=== PATIENT | female | born 1995 | race Caucasian/White ===

== ENCOUNTER → 2016-02-25 | Outpatient (CLI) | payer BC, OTHER ==
[~2016-02-25] MED LIST: AMOX875T PO; BCPILLS PO; NORE5TAB5 PO
[2016-02-29 00:51] LABS: CHLAMYDIA TRACH RNA*** NOT DETECTED (NOT DETECTED); GC (NEIS GONORRHOEAE)RNA** NOT DETECTED (NOT DETECTED)
== END | disposition home or self-care (01) ==
LOC: C.LABSPEC 15:19
PROVIDERS: ATTEND Obstetrics & Gynecology
DX: N93.8 Other specified abnormal uterine and vaginal bleeding (principal)

== ENCOUNTER → 2016-02-25 | Outpatient (CLI) | payer BC | END | disposition home or self-care (01) | LOC: C.PAPS 07:58 | PROVIDERS: ATTEND Obstetrics & Gynecology | DX: Z01.419 Encounter for gynecological examination (general) (routine) without abnormal findings (principal) ==

== ENCOUNTER → 2016-02-27 | Outpatient (CLI) | payer BC ==
[2016-02-27 18:59] LABS: HEMATOCRIT 33.9 % (37-47)
== END | disposition home or self-care (01) ==
LOC: C.LAB 17:35
PROVIDERS: ATTEND Obstetrics & Gynecology
DX: N92.5 Other specified irregular menstruation (principal)

== ENCOUNTER → 2016-04-14 | Outpatient (CLI) | payer BC | END | disposition home or self-care (01) | LOC: C.PAPS 15:13 | PROVIDERS: ATTEND Obstetrics & Gynecology | DX: R87.612 Low grade squamous intraepithelial lesion on cytologic smear of cervix (LGSIL) (principal); Z87.42 Personal history of other diseases of the female genital tract ==

== ENCOUNTER → 2016-05-04 | Outpatient (CLI) | payer BC ==
[2016-05-04 15:17] LABS: HEMATOCRIT 29.6 % (37-47)
== END | disposition home or self-care (01) ==
LOC: C.LAB 14:40
PROVIDERS: ATTEND Obstetrics & Gynecology
DX: N92.0 Excessive and frequent menstruation with regular cycle (principal)

== ENCOUNTER 2016-08-01 23:02 | Emergency (ER) | payer BC ==
[~2016-08-01] VITALS: Ht 157.5 cm; Wt 83.1 kg
[~2016-08-01 23:02] MED LIST changes: -AMOX875T PO; -NORE5TAB5 PO
[2016-08-01 23:11] VITALS: TEMP 36.8; Ht 157.5 cm; Wt 83.1 kg
[2016-08-01] MEDS ORDERED: ONDANSETRON INJ 2 MG/ML 2 ML VIAL IV STA (23:29)
[2016-08-01] MEDS ORDERED: SODIUM CHLORIDE 0.9% 500ML 500 ML IV STA (23:29)
[2016-08-01] MEDS ORDERED: SODIUM CHLORIDE 0.9% 1000ML 1,000 ML IV STA (23:29)
[2016-08-01] MEDS ORDERED: MoRPHine SULFATE 4 MG/ML 1 ML CARP\\VIAL IV STA (23:29)
--- NOTE | 2016-08-01 23:36 | EMERGENCY ROOM VISIT NOTE ---
History Report prepared by Terri: [place] Under the Supervision of: Dr. Chichi Christensen M.D. First contact with patient: 23:17 Chief Complaint: FLANK PAIN Stated Complaint: SEVERE RT SIDE/BACK PAIN FOR A FEW DAYS History of Present Illness The patient is a 20 year old female who presents to the Emergency Room with complaints of persistent right upper quadrant pain since yesterday afternoon. The pain moved more towards her back sometime last night and was also worsening. The pain does not radiate to the groin. The patient notes that it has been difficult to get comfortable in any position. The patient had Tylenol extra strength which offered some relief. She has never had surgery of the abdomen. Yesterday the patient ate chicken, peppers, and white rice, and notes that the pain was worse afterwards. She ate fish sticks, peanuts, and [employer] [place] today. The patient denies the possibility of secondary to control use. She is using control because of excessive menstrual bleeding. The patient denies burning with urination. The patient had all of her childhood immunizations. Source of History: patient Onset: yesterday afternoon Position: abdomen (RUQ) Timing: other (persistent) Modifying Factors (Worsening): eating Modifying Factors (Relieving): tylenol Associated Symptoms: No urinary symptoms Review of Systems See HPI for pertinent positives & negatives. A total of 10 systems reviewed and were otherwise negative. Past Medical & Surgical Medical Problems: (1) Asthma Family History Diabetes mellitus Hypertension Kidney stones Social History Smoking Status: Never Smoker Alcohol Use: none Marital Status: single Occupation Status: employed, student Current/Historical Medications Scheduled Amoxicillin & Pot Clavulanate (Augmentin 875-125 mg), 1 TAB PO BID Norethindrone (Aygestin), 5 MG PO DAILY Allergies Coded Allergies: No Known Allergies (Unverified , NONE, 08/01/16) Physical Exam Vital Signs Date Time Temp Pulse Resp B/P (MAP) Pulse Ox O2 Delivery O2 Flow Rate FiO2 08/02/16 01:16 77 18 128/82 100 Room Air 08/01/16 23:11 36.8 90 18 130/86 100 Room Air Physical Exam Vital signs reviewed. General: Well-appearing female, in no significant distress. HEENT: No scleral icterus, PERRLA, neck supple. Atraumatic. Cardiovascular: Regular rate and rhythm, no extra sounds. Pulmonary: Clear to auscultation bilaterally, normal work of breathing. Abdomen: Mild right upper quadrant tenderness, no rebound or guarding. Musculoskeletal: Atraumatic, no peripheral edema. No CVA tenderness. Neurologic: Patient awake alert and oriented x 3 Skin: Warm, dry, no rash Medical Decision & Procedures ER Provider Diagnostic Interpretation: X-ray results as stated below per interpretation by me. Chest/Abdomen X-ray: Nonobstructive bowel gas pattern, no free air , moderate fecal retention. No focal lung consolidation, normal mediastinum. Radiology results as stated below per my review and radiologist interpretation. US RUQ: No gallstones. No evidence of GB wall thickening or pericholeycstic fluid. No biliary dilation Liver, right kidney, visualized pancreas unremarkable. No free fluid. Radiologist: Roberto Nair MD from [facility]. Laboratory Results 08/02/16 00:37 Red Blood Count 4.40, Mean Corpuscular Volume 69.3, Mean Corpuscular Hemoglobin 20.7, Mean Corpuscular Hemoglobin Concent 29.8, Mean Platelet Volume 9.2, Neutrophils (%) (Auto) 57.5, Lymphocytes (%) (Auto) 29.7, Monocytes (%) (Auto) 9.9, Eosinophils (%) (Auto) 1.5, Basophils (%) (Auto) 0.5, Neutrophils # (Auto) 4.24, Lymphocytes # (Auto) 2.19, Monocytes # (Auto) 0.73, Eosinophils # (Auto) 0.11, Basophils # (Auto) 0.04 08/01/16 23:30 08/02/16 00:37 Test 08/01/16 23:30 08/02/16 00:37 Urine Color YELLOW Urine Appearance CLEAR (CLEAR) Urine pH 7.0 (4.5-7.5) Urine Specific [place] 1.009 (1.000-1.030) Urine Protein NEG (NEG) Urine Glucose (UA) NEG (NEG) Urine Ketones NEG (NEG) Urine Occult Blood NEG (NEG) Urine Nitrite NEG (NEG) Urine Bilirubin NEG (NEG) Urine Urobilinogen NEG (NEG) Urine Leukocyte Esterase NEG (NEG) Urine Test NEG (NEG) Anion Gap 7.0 mmol/L (3-11) Est Creatinine Clear Calc Drug Dose 64.1 ml/min Estimated GFR () 62.5 Estimated GFR (Non- 54.0 BUN/Creatinine Ratio 12.4 (10-20) Calcium Level 9.0 mg/dl (8.5-10.1) Total Bilirubin 0.2 mg/dl (0.2-1) Alanine Aminotransferase (ALT/SGPT) 25 U/L (12-78) Alkaline Phosphatase 59 U/L (45-117) Total Protein 7.1 gm/dl (6.4-8.2) Albumin 3.3 gm/dl (3.4-5.0) Lipase 251 U/L (73-393) White Blood Count 7.38 K/uL (4.8-10.8) Red Blood Count 4.40 M/uL (4.2-5.4) Hemoglobin 9.1 g/dL (12.0-16.0) Hematocrit 30.5 % (37-47) Mean Corpuscular Volume 69.3 fL (80-100) Mean Corpuscular Hemoglobin 20.7 pg (25-34) Mean Corpuscular Hemoglobin Concent 29.8 g/dl (32-36) Platelet Count 237 K/uL (130-400) Mean Platelet Volume 9.2 fL (7.4-10.4) Neutrophils (%) (Auto) 57.5 % Lymphocytes (%) (Auto) 29.7 % Monocytes (%) (Auto) 9.9 % Eosinophils (%) (Auto) 1.5 % Basophils (%) (Auto) 0.5 % Neutrophils # (Auto) 4.24 K/uL (1.4-6.5) Lymphocytes # (Auto) 2.19 K/uL (1.2-3.4) Monocytes # (Auto) 0.73 K/uL (0.11-0.59) Eosinophils # (Auto) 0.11 K/uL (0-0.5) Basophils # (Auto) 0.04 K/uL (0-0.2) RDW Standard Deviation 40.6 fL (36.4-46.3) RDW Coefficient of Variation 16.2 % (11.5-14.5) Immature Granulocyte % (Auto) 0.9 % Immature Granulocyte # (Auto) 0.07 K/uL (0.00-0.02) Microcytosis PRESENT Ovalocytes 1+ Direct Bilirubin < 0.1 mg/dl (0-0.2) Aspartate Amino Transf (AST/SGOT) 11 U/L (15-37) Laboratory results per my review. Medications Administered Medications (Trade) Dose Ordered Sig/Katie Route Start Time Stop Time Status Last Admin Dose Admin Sodium Chloride 500 ml @ 999 mls/hr Q31M STAT IV 08/01/16 23:29 08/01/16 23:59 DC 08/01/16 23:45 999 MLS/HR Sodium Chloride 1,000 ml @ 125 mls/hr Q8H STAT IV 08/01/16 23:29 08/02/16 01:40 DC 08/01/16 23:44 125 MLS/HR Morphine Sulfate (MoRPHine SULFATE INJ) 4 mg NOW STAT IV 08/01/16 23:29 08/01/16 23:32 DC 08/01/16 23:44 4 MG Ondansetron HCl (Zofran Inj) 4 mg NOW STAT IV 08/01/16 23:29 08/01/16 23:32 DC 08/01/16 23:44 4 MG Bisacodyl (Dulcolax Supp) 10 mg NOW STAT ID 08/02/16 00:23 08/02/16 00:24 DC 08/02/16 00:23 10 MG Magnesium Citrate (Citrate Of Magnesia Soln) 150 ml NOW ONCE PO 08/02/16 00:30 08/02/16 00:31 DC 08/02/16 00:30 150 ML ED Course 2328: Past medical records reviewed. The patient was evaluated in room C12b. A complete history and physical examination was performed. 2329: Zofran 4 mg IV, Morphine Sulfate 4 mg IV, NSS 1000 ml @ 125 mls/hr, NSS 500 ml @ 999 mls/hr. 0023: Bisacodyl 10 mg ID. 0027: Updated the patient and her mother. The mother notes that she was complaining of constipation earlier this week. 0030: Magnesium Citrate 150 ml PO 0100: Reassessed the patient. Discussed the workup. She understands and agrees with the discharge instructions. The patient is ready for discharge. Medical Decision Differential diagnosis: Etiologies such as appendicitis, diverticulitis, PUD, biliary pathology, UTI, pancreatitis, obstruction, mesenteric ischemia, aortic pathology, infections, inflammatory bowel disease, renal colic, as well as others were entertained. Blood Pressure Screening: Patient was found to have normal blood pressure on screening and does not require follow-up. Medication Reconciliation: I attest that I have personally reviewed the patient' s current medication list. This patient was evaluated and appeared to be in no significant distress. IV access was obtained and laboratory work was drawn. The patient was placed on the equipment monitor phototypesetting. Abdominal x-ray series was performed and reveals no free air or obstruction. She does have moderate colonic fecal retention to my interpretation. Ultrasound of right upper quadrant is read by radiology is relatively normal. Patient's laboratory work is unrevealing. She was given a Dulcolax suppository and magnesium citrate. She was instructed to use MiraLAX daily as needed for constipation. She will increase the water fiber in her diet. Patient was discharged in care of her mother and will return to the ER for worsening of symptoms or any medical concerns. Impression Primary Impression: Constipation Additional Impression: Elevated serum creatinine Scribe Attestation The scribe's documentation has been prepared under my direction and personally reviewed by me in its entirety. I confirm that the note above accurately reflects all work, treatment, procedures, and medical decision making performed by me. Departure Information Dispostion Home / Self-Care Referrals Jose Avilez M.D. (PCP) Forms HOME CARE DOCUMENTATION FORM, IMPORTANT VISIT INFORMATION Patient Instructions My [facility] Additional Instructions Diagnosis: Elevated creatinine, constipation. Take the remaining magnesium citrate in the morning if you have not had a BM. Continue miralax 1 capful daily as needed for a BM. Drink plenty of clear fluids. Increase the water and fiber in your diet. Follow up with your doctor in 2-3 days for reevaluation of your abdominal pain and kidney function. Return to emergency for worsening of symptoms or any medical concerns. Problem Qualifiers Primary Impression: Constipation Constipation type: unspecified constipation type Qualified Codes: K59.00 - Constipation, unspecified
[2016-08-01 23:46] LABS: URINE APPEARANCE CLEAR (CLEAR); URINE BILIRUBIN NEG (NEG); URINE COLOR YELLOW; URINE NITRITE NEG (NEG); URINE SPECIFIC GRAVITY 1.009 (1.000-1.030); UROBILINOGEN NEG (NEG); ZZUR CULT IF INDIC CLEAN CATCH NO
[2016-08-01 23:52] LABS: MANUAL MICROSCOPIC REQUIRED? NO; REVIEW REQ? NO
[2016-08-02 00:14] LABS: ALKALINE PHOSPHATASE 59 U/L (45-117); ALT/SGPT 25 U/L (12-78); BLOOD UREA NITROGEN 17 mg/dl (7-18); BUN/CREATININE RATIO 12.4 (10-20); CARBON DIOXIDE 26 mmol/L (21-32); CHLORIDE 105 mmol/L (98-107); GLUCOSE 88 mg/dl (70-99); SODIUM 138 mmol/L (136-145)
[2016-08-02] MEDS ORDERED: NORE5TAB5 PO (00:20)
[2016-08-02] MEDS ORDERED: BISACODYL 10 MG SUPP PR STA (00:23)
[2016-08-02] MEDS ORDERED: AMOX875T PO (00:28)
[2016-08-02] MEDS ORDERED: MAGNESIUM CITRATE 296 ML/BTL PO ONE (00:30)
[2016-08-02 00:45] LABS: BASO % 0.5 %; BASO ABS # 0.04 K/uL (0-0.2); EOS % 1.5 %; HEMATOCRIT 30.5 % (37-47); IG% 0.9 %; LYMPH % 29.7 %; LYMPH ABS # 2.19 K/uL (1.2-3.4); MEAN CELL VOLUME 69.3 fL (80-100); MEAN CORPUSCULAR HEMOGLOBIN 20.7 pg (25-34); MEAN CORPUSCULAR HGB CONC 29.8 g/dl (32-36); MEAN PLATELET VOLUME 9.2 fL (7.4-10.4); MONO % 9.9 %; NEUT % 57.5 %; PLATELET COUNT 237 K/uL (130-400); WHITE BLOOD COUNT 7.38 K/uL (4.8-10.8)
[2016-08-02 01:05] LABS: POTASSIUM 3.7 mmol/L (3.5-5.1)
[2016-08-02 01:10] LABS: AST/SGOT 11 U/L (15-37)
[2016-08-02 01:11] LABS: COMPLETE YES; MICROCYTOSIS PRESENT; OVALOCYTES 1+
[2016-08-02 01:16] VITALS: BP 128/82; PULSE 77; O2SAT 100
--- NOTE | 2016-08-02 05:50 | DIAGNOSTIC IMAGING REPORT ---
[facility] ultrasound GALLBLADDER-ABD LIMITED CLINICAL HISTORY: RUQ pain pain. Nausea. TECHNIQUE: Ultrasound COMPARISON STUDY: 06/06/2014 FINDINGS: Normal study IMPRESSION: Normal study. Normal gallbladder. Electronically signed by: Chung Irvin M.D. 08/02/2016 5:48 AM Dictated Date/Time: 08/02/2016 5:48 AM
--- NOTE | 2016-08-02 05:51 | DIAGNOSTIC IMAGING REPORT ---
ABDOMEN 2VIEW W/PA CHEST RTN CLINICAL HISTORY: RUQ pain pain. Nausea. COMPARISON STUDY: No previous studies for comparison. FINDINGS: The soft tissues, psoas shadows, renal outlines and intestinal gas pattern appear normal. There is no evidence for bowel obstruction. There is no evidence for free intraperitoneal air. No abnormal abdominal calcifications are seen. A frontal view of the chest was performed and is unremarkable. IMPRESSION: Normal study. Electronically signed by: Chung Irvin M.D. 08/02/2016 5:49 AM Dictated Date/Time: 08/02/2016 5:49 AM
== END 2016-08-02 01:21 | disposition home or self-care (01) ==
LOC: C.EDB 23:03 → C.EDC 08-02 01:21
DX: K59.00 Constipation, unspecified (principal); R94.4 Abnormal results of kidney function studies; J45.909 Unspecified asthma, uncomplicated; Z83.3 Family history of diabetes mellitus; Z82.49 Family history of ischemic heart disease and other diseases of the circulatory system; Z84.1 Family history of disorders of kidney and ureter

== ENCOUNTER → 2016-10-01 | Outpatient (CLI) | payer BC ==
[~2016-10-01] MED LIST changes: +AMOX875T PO; -BCPILLS PO; +NORE5TAB5 PO
== END | disposition home or self-care (01) ==
LOC: C.PAPS 14:51
PROVIDERS: ATTEND Obstetrics & Gynecology
DX: R87.612 Low grade squamous intraepithelial lesion on cytologic smear of cervix (LGSIL) (principal)

== ENCOUNTER → 2016-10-20 | Outpatient (CLI) | payer BC ==
[2016-10-20 14:51] LABS: HEMATOCRIT 34.4 % (37-47)
== END | disposition home or self-care (01) ==
LOC: C.LABBC 12:53
PROVIDERS: ATTEND Obstetrics & Gynecology
DX: N92.0 Excessive and frequent menstruation with regular cycle (principal); D64.9 Anemia, unspecified

== ENCOUNTER → 2017-04-27 | Outpatient (CLI) | payer BC ==
[2017-04-27 13:18] LABS: HEMOGLOBIN 13.7 g/dL (12.0-16.0)
== END | disposition home or self-care (01) ==
LOC: C.LAB 11:57
PROVIDERS: ATTEND Obstetrics & Gynecology
DX: N92.0 Excessive and frequent menstruation with regular cycle (principal); D64.9 Anemia, unspecified

== ENCOUNTER → 2017-09-15 | Outpatient (CLI) | payer BC ==
[~2017-09-15] MED LIST changes: -AMOX875T PO; +BCPILLS PO; -NORE5TAB5 PO
[2017-09-15 19:03] LABS: BASO % 0.4 %; BASO ABS # 0.03 K/uL (0-0.2); EOS % 1.1 %; EOS ABS # 0.08 K/uL (0-0.5); HEMATOCRIT 43.4 % (37-47); HEMOGLOBIN 14.5 g/dL (12.0-16.0); IG# 0.01 K/uL (0.00-0.02); LYMPH % 39.1 %; LYMPH ABS # 2.89 K/uL (1.2-3.4); MEAN CELL VOLUME 85.1 fL (80-100); MEAN CORPUSCULAR HEMOGLOBIN 28.4 pg (25-34); MEAN CORPUSCULAR HGB CONC 33.4 g/dl (32-36); MEAN PLATELET VOLUME 9.3 fL (7.4-10.4); MONO % 8.1 %; NEUT % 51.2 %; NEUT ABS # 3.79 K/uL (1.4-6.5); PLATELET COUNT 246 K/uL (130-400); RED CELL DISTRIBUTION WIDTH CV 13.1 % (11.5-14.5); RED CELL DISTRIBUTION WIDTH SD 40.8 fL (36.4-46.3)
[2017-09-15 19:12] LABS: PTT PATIENT 24.3 SECONDS (21.0-31.0)
[2017-09-15 19:20] LABS: BLOOD UREA NITROGEN 14 mg/dl (7-18); CALCIUM 8.8 mg/dl (8.5-10.1); CARBON DIOXIDE 23 mmol/L (21-32); CREATININE 0.78 mg/dl (0.60-1.20); GLUCOSE 73 mg/dl (70-99); POTASSIUM 3.5 mmol/L (3.5-5.1); SODIUM 139 mmol/L (136-145)
== END | disposition home or self-care (01) ==
LOC: C.LAB 17:44
PROVIDERS: ATTEND Plastic Surgery
DX: Z01.818 Encounter for other preprocedural examination (principal); N62 Hypertrophy of breast; A49.02 Methicillin resistant Staphylococcus aureus infection, unspecified site

== ENCOUNTER → 2017-09-22 | Outpatient (CLI) | payer BC | END | disposition home or self-care (01) | LOC: C.LAB 15:41 | PROVIDERS: ATTEND Physician Assistant | DX: Z01.818 Encounter for other preprocedural examination (principal) ==

== ENCOUNTER 2017-09-27 05:40 | Observation (INO) | payer BC ==
[2017-09-14 09:36] VITALS: BMI 41.0
[2017-09-16 09:22] VITALS: BMI 42.0
--- NOTE | 2017-09-16 09:37 | PAT Medication Instructions ---
Service Date Sep 16, 2017. Current Home Medication List Control Pills ( Control Pills), 1 TAB PO DAILY Medication Instructions For Your Scheduled Surgery -Continue to hold per surgeon's instructions: Control Pills ( Control Pills), 1 TAB PO DAILY If you have any questions please call us at [phone] or [phone] or [phone]
[2017-09-27] VITALS (8 sets, daily range): BP systolic 102–140; BP diastolic 66–87; PULSE 59–104; TEMP 36.4–37.3; O2SAT 96–99; Ht 157.5 cm; Wt 104.1 kg
[~2017-09-27] VITALS: Ht 157.5 cm; Wt 104.1 kg
[2017-09-27] MEDS ORDERED: LACTATED RINGER'S 1000ML 1,000 ML IV SCH (06:00)
[2017-09-27] MEDS ORDERED: CEFAZOLIN 2000MG IV PUSH 15 ML IV SCH (06:00)
[2017-09-27] MEDS ORDERED: EpINEphrine INJ 1MG/ML AMP 1 MG/ML AMP ONE (06:57)
[2017-09-27] MEDS ORDERED: LIDOCAINE/EPINEPHRINE 1% 20 ML VIAL ONE (06:57)
[2017-09-27] MEDS ORDERED: LIDOCAINE HCL 1% 20 ML VIAL ONE (06:58)
[2017-09-27] MEDS ORDERED: BUPIVACAINE 0.25% 30 ML VIAL ONE (06:59)
[2017-09-27] MEDS ORDERED: LIDOCAINE 2% JELLY 5 ML TUBE ONE (07:00)
--- NOTE | 2017-09-27 07:00 | History & Physical Bridge Note ---
H&P Re-Evaluation Bridge Note: I have examined the patient, reviewed the History & Physical and in the interval since the performance of the History & Physical I have noted the following changes of clinical significance: No changes noted
[2017-09-27] MEDS ORDERED: ACETAMINOPHEN 1000 MG/100 ML IV IV ONE (07:01)
[2017-09-27] MEDS ORDERED: MIDAZOLAM HCL 1 MG/ML 2ML VIAL ONE (07:10)
[2017-09-27] MEDS ORDERED: FENTANYL CITRATE INJ 50 MCG/1 ML 2 ML VIAL ONE (07:10)
[2017-09-27] MEDS ORDERED: HYDROmorphone INJ 2 MG/ML SYR/VIAL ONE (07:44)
[2017-09-27] MEDS ORDERED: KETAMINE HCL INJ 50 MG/ML 10 ML VIAL ONE (07:44)
[2017-09-27] MEDS ORDERED: ONDANSETRON INJ 2 MG/ML 2 ML VIAL ONE (07:59)
[2017-09-27] MEDS ORDERED: ROCURONIUM BROMIDE 10 MG/ML 5 ML VIAL ONE (07:59)
[2017-09-27] MEDS ORDERED: METOCLOPRAMIDE HCL INJ 5 MG/ML 2 ML VIAL ONE (07:59)
[2017-09-27] MEDS ORDERED: PROPOFOL IV EMULSION 10 MG/ML 20 ML VIAL ONE (07:59)
[2017-09-27] MEDS ORDERED: DiphenhydrAMINE HCL 50 MG/ML VIAL ONE (07:59)
[2017-09-27] MEDS ORDERED: LIDOCAINE HCL 2% 2 ML VIAL (20MG/ML) ONE (07:59)
--- NOTE | 2017-09-27 11:13 | [facility] Post Operative Brief Note ---
Immediate Operative Summary Operative Date Sep 27, 2017. Pre-Operative Diagnosis Macromastia Post-Operative Diagnosis Same as preop Procedure(s) Performed Bilateral Breast Reduction Surgeon Dr. Fong Motor Equipment Lieutenant Surgeon(s) Selena Oneill PA-C Estimated Blood Loss 75 cc Findings Consistent with Post-Op Diagnosis Specimens A: left breast tissue - 1154 grams B: right breast tissue - 1328 grams both sent to lab at 1037 Drains JPx2 Anesthesia Type General Complication(s) none Disposition Disposition: Recovery Room / PACU
[2017-09-27] MEDS ORDERED: DiphenhydrAMINE HCL 50 MG/ML VIAL IV PRN (11:45)
[2017-09-27] MEDS ORDERED: OXAZEPAM 10MG CAP PO PRN (11:45)
[2017-09-27] MEDS ORDERED: OXYCODONE/ACETAMINOPHEN 5-325 TAB PO PRN (11:45)
[2017-09-27] MEDS ORDERED: ONDANSETRON INJ 2 MG/ML 2 ML VIAL IV PRN ×2 (11:45→12:00)
[2017-09-27] MEDS ORDERED: ACETAMINOPHEN 325 MG TAB PO PRN (11:45)
[2017-09-27] MEDS ORDERED: MoRPHine SULFATE 2 MG/ML CARP IV PRN ×3 (11:45)
[2017-09-27] MEDS ORDERED: PROMETHAZINE HCL INJ 12.5 MG in SODIUM CHLORIDE 0.9% 50ML 50 ML IV PRN ×2 (11:45→12:00)
[2017-09-27] MEDS ORDERED: HYDROmorphone INJ 0.5 MG/0.5 ML SYR ONE (11:51)
[2017-09-27] MEDS ORDERED: HYDROmorphone INJ 1 MG/ML SYR IV PRN (12:00)
[2017-09-27] MEDS ORDERED: ATROPINE SULFATE 0.1 MG/ML 5ML SYR IV PRN (12:00)
[2017-09-27] MEDS ORDERED: NALOXONE HCL 0.4 MG/1 ML VIAL/CARP IV PRN (12:00)
[2017-09-27] MEDS ORDERED: EpHEDrine SULFATE INJ 50 MG/ML AMP IV PRN (12:00)
[2017-09-27] MEDS ORDERED: FLUMAZENIL 0.1 MG/1 ML 10 ML VIAL IV PRN (12:00)
--- NOTE | 2017-09-27 12:21 | Anesthesiology Progress Note ---
Anesthesia Post Op Note Date & Time Sep 27, 2017 at 12:21 Vital Signs Pain Intensity: 3 Vital Signs Past 12 Hours Date Time Temp Pulse Resp B/P (MAP) Pulse Ox O2 Delivery O2 Flow Rate FiO2 09/27/17 12:10 36.4 82 12 132/73 100 Nasal Cannula 2 09/27/17 12:00 79 13 132/74 100 Nasal Cannula 2 09/27/17 11:50 63 18 117/86 100 Nasal Cannula 2 09/27/17 11:40 70 20 129/68 100 Oxymask 10 09/27/17 11:30 84 19 141/80 100 Oxymask 10 09/27/17 11:23 36.4 82 17 148/85 100 Oxymask 10 09/27/17 06:36 37.3 104 18 140/83 (102) 97 Notes Mental Status: alert / awake / arousable, participated in evaluation Pt Amnestic to Procedure: Yes Nausea / Vomiting: adequately controlled Pain: adequately controlled Airway Patency, RR, SpO2: stable & adequate BP & HR: stable & adequate Hydration State: stable & adequate Anesthetic Complications: no major complications apparent
[2017-09-27] MEDS ORDERED: GLYCOPYRROLATE INJ 0.2 MG/ML VIAL ONE (12:58)
[2017-09-27] MEDS ORDERED: NEOSTIGMINE METHYLSULFATE 5 MG/5 ML SYR ONE (12:58)
[2017-09-27] MEDS ORDERED: MoRPHine SULFATE 4 MG/ML 1 ML CARP\\VIAL ONE (13:47)
--- NOTE | 2017-09-27 13:51 | Progress Note ---
Progress Note Date of Service Sep 27, 2017. Progress Note S/P bilateral breast reduction Patient resting comfortably. Pain controlled. VSS. Nipples pink and with sensation bilaterally Will see in AM to remove drains
[2017-09-27] MEDS ORDERED: IV FLUIDS COMPLETED PRN (15:15)
[2017-09-27] MEDS: CEFAZOLIN IV 2,000 MG in SYRINGE 0 ML IV SCH ×2 (16:08→23:15)
--- NOTE | 2017-09-27 16:22 | OPERATIVE REPORT ---
DATE OF OPERATION: 09/27/2017 PREOPERATIVE DIAGNOSIS: Bilateral symptomatic macromastia. POSTOPERATIVE DIAGNOSIS: Same. PROCEDURE: Bilateral reduction mammoplasty. SURGEON: Sara Fong MD. ANNEALING FURNACE OPERATOR: Lisa Oneill PA-C. ANESTHESIA: General. COMPLICATIONS: None. INDICATION FOR THE PROCEDURE: Patient is a 21-year-old female who presented to ut for evaluation for breast reduction. She noted rapid growth of her breasts during her teen years as well as approximately 80 pounds weight gain that resulted in potentially increase in her breast size. She has had difficulties finding bras and complains of back, neck, and shoulder pain and arrived down here for breast reduction surgery. She was counseled preoperatively about the effect of obesity and its effects on breast size but felt that she did not desire to lose any weight prior to the procedure. DESCRIPTION OF PROCEDURE: The risks, benefits, and alternatives of the procedure were explained to the patient who agreed and signed consent. She was identified and marked in the preoperative holding area. She was brought to the operating room where she was positioned supine and placed under general anesthesia without incident. Surgical site was prepped and draped sterilely. Timeout procedure was performed. We began with the left side. Markings were reassessed, and a 7 cm pedicle was marked. Lidocaine 1% with epinephrine was used to anesthetize the planned incisions. A 38 mm cookie cutter was used to circumscribe the nipple-areolar complex. A previously marked 7 cm pedicle was incised using a 15 blade scalpel and deepithelialized. I began with the medial dissection of the pedicle using electrocautery. Cautery was used to incise through dermis and breast parenchyma down to the chest wall taking care not to undermine the pedicle during dissection. A similar procedure was undertaken along the lateral aspect of the pedicle taking care not to undermine. Lastly, pedicle was dissected out superiorly using electrocautery. This was carried down to the chest wall as well. I then began excision of the medial breast tissue followed by lateral aspect of the breast tissue and surrounding keyhole incision. A 15 blade scalpel was used to deepen the inframammary fold incision, and electrocautery was used to deepen the incision through the dermis and breast parenchyma. Dissection was then carried superiorly to the level of the superior incision. The superior incision was then incised using 15 blade scalpel and again dissected using electrocautery. This was undertaken laterally and then around the keyhole portion of the incision. Care was taken to leave some fat on the lateral pectoralis fascia in order to protect the T4 intercostal nerve. Hemostasis was achieved with electrocautery. Specimen was removed in its entirety and passed off for weighing. Additional resection underneath the flap was undertaken. A total of 1154 g removed from the left breast. The wound was irrigated with saline, and hemostasis was achieved with electrocautery. 0.25% Marcaine plain was used to anesthetize the incisions as well as pectoralis fascia. A 15 Ukrainian Kevin drain was brought out through a separate stab incision. Nipple-areolar complex was brought into the keyhole using 2-0 Vicryl deep dermal suture. The wound was closed first in the lateral to mid breast direction using 2-0 Vicryl deep dermals and then medial to mid breast using 2-0 Vicryl deep dermals. Vertical limb was also approximated using 2-0 Vicryl deep dermals. Nipple-areolar complex was inset using 2-0 Vicryl deep dermals. Next, superficial dermal layer was closed using 2-0 PDO running Quill suture along the inframammary fold and 3-0 PDS interrupted dermal sutures for the vertical limb and nipple-areolar complex. Lastly, 3-0 Monocryl running subcuticular suture was placed. A similar procedure was undertaken on the right side with maximal excision weight of 1328 g. The nipple-areolar complexes were pink and viable throughout the entire procedure. Breasts were reasonably symmetric following the procedure. Following closure, Dermabond Prineo was applied along the inframammary folds and vertical limb incisions, and Dermabond was placed around the nipple-areolar complex. Dry dressings followed by a surgical bra placed. Patient was awakened and transferred to the recovery room in satisfactory condition. Lisa Oneill PA-C was present and scrubbed throughout the entire procedure and was instrumental in providing retraction during dissection of the pedicle and assisting in simultaneous wound closure. I attest to the content of the Intraoperative Record and any orders documented therein. Any exceptions are noted below. ANGELA
[2017-09-27] MEDS: OXYCODONE/ACETAMINOPHEN 5-325 TAB PO PRN ×2 (19:33→23:39)
[2017-09-27] MEDS: LACTATED RINGER'S 1000ML 1,000 ML IV SCH (21:23)
[2017-09-28 03:25] VITALS: BP 119/77; PULSE 58; TEMP 36.6; O2SAT 96
[2017-09-28] MEDS: OXYCODONE/ACETAMINOPHEN 5-325 TAB PO PRN ×3 (03:33→13:30)
[2017-09-28] MEDS: LACTATED RINGER'S 1000ML 1,000 ML IV SCH (06:04)
[2017-09-28 07:17] VITALS: BP 104/68; PULSE 74; TEMP 36.6; O2SAT 95
--- NOTE | 2017-09-28 08:18 | Surgery Progress Note ---
Surgery Progress Note Date of Service Sep 28, 2017. Subjective Post OP Day: 1 + feeling well, + ambulating, + pain controlled, No complaints Objective Vital Signs: Date Time Temp Pulse Resp B/P (MAP) Pulse Ox O2 Delivery O2 Flow Rate FiO2 09/28/17 07:17 36.6 74 18 104/68 (80) 95 Room Air 09/28/17 03:25 36.6 58 14 119/77 (91) 96 Room Air 09/28/17 00:00 Room Air 09/27/17 23:30 36.7 59 16 129/77 (94) 96 Room Air 09/27/17 19:56 36.9 63 18 111/68 (82) 96 Room Air 09/27/17 15:50 Room Air 09/27/17 15:40 37.0 71 17 102/66 (78) 97 Nasal Cannula 2.0 09/27/17 14:42 70 16 116/68 (84) 99 2.0 09/27/17 13:40 71 16 137/87 (104) 99 2.0 09/27/17 13:10 68 16 136/84 (101) 98 Nasal Cannula 2.0 09/27/17 12:40 36.4 68 16 121/74 (90) 98 Room Air 2.0 09/27/17 12:40 Nasal Cannula 2.0 09/27/17 12:40 Nasal Cannula 2.0 09/27/17 12:20 82 12 125/65 99 Nasal Cannula 2 09/27/17 12:10 36.4 82 12 132/73 100 Nasal Cannula 2 09/27/17 12:00 79 13 132/74 100 Nasal Cannula 2 09/27/17 11:50 63 18 117/86 100 Nasal Cannula 2 09/27/17 11:40 70 20 129/68 100 Oxymask 10 09/27/17 11:30 84 19 141/80 100 Oxymask 10 09/27/17 11:23 36.4 82 17 148/85 100 Oxymask 10 Physical Exam: Kevin drainage (scant bloody and serous) General Appearance: WD/WN, no apparent distress Incision(s): clean, dry, intact, no erythema, findings (nipples pink) Assessment & Plan s/p bilateral breast reduction. drains removed. d/c home today
--- NOTE | 2017-09-28 08:18 | Anesthesiology Progress Note ---
Anesthesia Post Op Note Date & Time Sep 28, 2017 at 08:17 Vital Signs Vital Signs Past 12 Hours Date Time Temp Pulse Resp B/P (MAP) Pulse Ox O2 Delivery O2 Flow Rate FiO2 09/28/17 07:17 36.6 74 18 104/68 (80) 95 Room Air 09/28/17 03:25 36.6 58 14 119/77 (91) 96 Room Air 09/28/17 00:00 Room Air 09/27/17 23:30 36.7 59 16 129/77 (94) 96 Room Air Notes Mental Status: alert / awake / arousable, participated in evaluation Pt Amnestic to Procedure: Yes Nausea / Vomiting: adequately controlled Pain: adequately controlled Airway Patency, RR, SpO2: stable & adequate BP & HR: stable & adequate Hydration State: stable & adequate Anesthetic Complications: no major complications apparent
--- NOTE | 2017-09-28 08:20 | Discharge Instructions ---
Discharge Instructions Date of Service Sep 28, 2017. Admission Reason for Admission: Symptomatic Macromastia Discharge Discharge Diagnosis / Problem: macromastia Discharge Goals Goal(s): Improve function Activity Recommendations Activity Limitations: per Instructions/Follow-up section ACTIVITY RECOMMENDATIONS: __Normal activities _x_No bending, lifting or straining __No driving __Driving allowed when you are off pain medications _x_Walking permitted __You should have help at home for ___ days DRESSINGS: __No dressings required _x_Keep dressings dry/in place until first office visit __Remove dressings ___ and leave dressings off __Apply ice ___ days __Remove dressings and reapply garment __Apply antibiotic ointment (Bacitracin, Neosporin, etc) to wounds 3-4 times/ day for 10 days BATHING: _x_Keep dressings dry _x_Sponge bathing permitted __Showering permitted _x_No swimming, hot tubs or soaking in a tub MEDICATIONS: Resume previous medications unless instructed otherwise by your surgeon. _x_Do not use aspirin, Motrin, Advil or Ibuprofen as these may promote bleeding. Please use Tylenol. _x_Prescription(s) provided: pain medication was provided at your last office visit OTHER INSTRUCTIONS: __Record drain output 2-3 times per day SPECIAL CARE INSTRUCTIONS: * It is normal to have a mild fever after surgery. If your temperature is higher than 101.5 degrees F, please call the office at [phone]. * Constipation is a typical side effect of pain medication. An over-the- counter stool softener will help relieve this. * Leaking around surgical drains may occur and should not cause concern. Sometimes these drains become clogged. If this happens, remove the bulb and milk the clot out of the tube, then replace the bulb. * Drainage from wounds after liposuction is normal and should be expected. Garments will become soiled. You should protect furniture and bedding. This drainage should mostly subside within 2-3 days. Leave garments in place unless instructed to remove them. * If you have unusual drainage from a wound or are concerned you have an infection or have any questions or concerns, please call the office at [phone]. FOLLOW UP VISIT: If not already scheduled, please call the office, , when you return home after surgery to schedule an appointment to be seen in _2__ days. . Current Hospital Diet Patient's current hospital diet: Regular Diet Discharge Diet Recommended Diet: Regular Diet Procedures Procedures Performed: Bilateral Breast Reduction Pending Studies Studies pending at discharge: yes List of pending studies: pathology Medical Emergencies . Who to Call and When: Medical Emergencies: If at any time you feel your situation is an emergency, please call 911 immediately. . Non-Emergent Contact Non-Emergency issues call your: Primary Care Provider, Surgeon . "Provider Documentation" section prepared by Lisa Oneill. Alexey LOZA Drug Monitoring Program Search Results: no issues identified
[2017-09-28] MEDS ORDERED: ENOXAPARIN 40 MG/0.4 ML SYR SQ SCH (09:00)
[2017-09-28] MEDS ORDERED: MULTIVITAMIN TAB PO SCH (09:00)
[2017-09-28 10:42] VITALS: BP 104/68; PULSE 74; TEMP 36.6; O2SAT 95
--- NOTE | 2017-09-30 09:15 | Discharge Summary ---
Discharge Summary Date of Service Sep 30, 2017. Admission Date/Reason Sep 27, 2017 at 11:41 Symptomatic Macromastia. Discharge Date/Disposition Sep 28, 2017 Home Diagnosis Principal Diagnosis: macromastia Procedure(s) Performed bilateral breast reduction Medication Reconciliation Discontinued Medications: Control Pills ( Control Pills) Tab 1 TAB PO DAILY, TAB STOPPED 09/02/17 -- PER DR VICK'S INSTRUCTIONS Admission Physical Exam As per Admitting History & Physical. Hospital Course Patient presented to [facility] with history of symptomatic macromastia. She was taken to the OR and underwent bilateral breast reduction. There were no intraoperative complications. She was taken to recovery and transferred to med/ surg for observation. On POD#1, she was tolerated a regular diet and had good pain control. Her drains had scant bloody/serous output and they were removed. On exam, her incisions were CDI. VSS. She was discharged home. Discharge Instructions Please refer to the electronic Patient Visit Report (Discharge Instructions) for additional information.
== END 2017-09-28 14:20 | disposition home or self-care (01) ==
LOC: C.ACU 05:40 → C.MSW 11:41 → ENRESERV 12:00
PROVIDERS: ADMIT Plastic Surgery; ATTEND Plastic Surgery
DX: N62 Hypertrophy of breast (principal); K21.9 Gastro-esophageal reflux disease without esophagitis; Z88.8 Allergy status to other drugs, medicaments and biological substances; E66.01 Morbid (severe) obesity due to excess calories; Z68.41 Body mass index [BMI] 40.0-44.9, adult

== ENCOUNTER 2019-10-05 19:06 | Inpatient (IN) ==
[2019-10-05] MEDS ORDERED: miSOPROStoL 50 MCG TAB PO ONE (19:40)
[2019-10-05] MEDS ORDERED: OXYTOCIN 30 UNITS/500 ML BAG IV PRN (19:40)
[2019-10-05 19:57] LABS: Hematocrit (blood only) 34.3 % (37-47); Hemoglobin 10.9 g/dL (12.0-16.0); Mean Corpuscular Hemoglobin 26.6 pg (25-34); Mean Corpuscular Volume 83.7 fL (80-100); Mean Platelet Volume 11.7 fL (7.4-10.4); Platelet Count 171 K/uL (130-400); RDW Coefficient of Variation 17.2 % (11.5-14.5); RDW Standard Deviation 51.1 fL (36.4-46.3); White Blood Count 8.35 K/uL (4.8-10.8)
[2019-10-05 20:26] LABS: Mean Corpuscular Hgb Conc 31.8 g/dL (32-36)
[2019-10-06] MEDS: miSOPROStoL 50 MCG TAB PO SCH ×3 (00:54→09:25)
[2019-10-06] MEDS ORDERED: BUTORPHANOL TARTRATE 1 MG/ML VIAL IV ONE (08:15)
[2019-10-06] MEDS ORDERED: BUPIVACAINE 0.25% 30 ML VIAL ONE (10:20)
[2019-10-06] MEDS ORDERED: ePHEDrine sulfate 50 MG/ML AMP ONE (10:20)
[2019-10-06] MEDS ORDERED: fentaNYL citrate 100 MCG/2 ML VIAL ONE (10:20)
[2019-10-06] MEDS ORDERED: fentaNYL 2MCG/ML ROPIV 1.25MG/ML 100 ML BAG EPI ONE (10:21)
[2019-10-06] MEDS: LACTATED RINGER'S 1,000 ML IV PRN ×3 (10:24→19:20)
--- NOTE | 2019-10-06 11:21 | Anesthesiology Consultation ---
Date of Service October 06, 2019 Assessment & Plan Chart Review Chart Review: Acceptable Risk for Labor Epidural Consults Requested none History Height/Weight Height: 5 ft 2 in Weight: 101.151 kg Allergies Allergy/AdvReac Type Severity Reaction Status Date / Time latex Allergy Hives Verified 01/30/18 19:38 Medications Home Medications Medication Instructions Recorded Confirmed Last Taken vit no.[id number] 1 tab PO DAILY 09/13/19 10/06/19 10/04/19 [ One Daily] Active Medications Generic Name Dose Route Start Last Admin Trade Name Freq PRN Reason Stop Dose Admin Lactated Ringer's 1,000 mls @ 125 mls/hr 10/05/19 19:40 10/06/19 10:24 Lr IV 10/07/19 19:39 999 mls/hr .Q8H PRN Administration L&D Protocol Protocol Misoprostol 50 mcg 10/06/19 00:50 10/06/19 09:25 Misoprostol 50 Mcg Tab PO 11/05/19 00:49 Not Given Q4 MEREDITH Past Family History Family History Grandfather (Maternal) Heart disease Grandfather (Paternal) Heart disease Grandmother (Maternal) Heart disease Father Colon cancer Other No significant family history Past Surgical History Surgical History Hx of breast reduction, elective 2018 [place] teeth extracted Social History Smoking Status: Never smoker Hx Alcohol Use: No Hx Substance Use: No Physical Exam Vital Signs Last Vital Signs Temp 36.9 C 10/06/19 07:06 Pulse 88 10/06/19 11:16 Resp 20 10/06/19 07:06 BP 99/58 L 10/06/19 11:16 Pulse Ox 99 10/06/19 11:14 Testing Laboratory Results 10/05/19 19:39
[2019-10-06] MEDS ORDERED: ePHEDrine sulfate 50 MG/ML AMP IV PRN (11:23)
[2019-10-06] MEDS ORDERED: NALOXONE HCL 0.4 MG/1 ML VIAL/CARP IV PRN (11:23)
[2019-10-06] MEDS ORDERED: NALOXONE HCL 1 MG in SODIUM CHLORIDE 0.9% 1000ML 1,000 ML IV PRN (11:23)
[2019-10-06] MEDS ORDERED: fentaNYL 2MCG/ML ROPIV 1.25MG/ML 100 ML BAG EPI PRN (11:23)
[2019-10-06] MEDS ORDERED: DiphenhydrAMINE HCL 50 MG/ML VIAL IV PRN (11:23)
[2019-10-06] MEDS ORDERED: Nursing to Pharmacy Communication SCH (12:30)
[2019-10-06] MEDS ORDERED: OXYTOCIN 30 UNITS/500 ML BAG IV PRN (17:05)
[2019-10-07] MEDS ORDERED: METHYLERGONOVINE MALEATE 0.2 MG/ML AMP ONE (00:35)
[2019-10-07] MEDS ORDERED: SUPERCREAM 0.870% 15 GM JAR EXT PRN (00:38)
[2019-10-07] MEDS ORDERED: ACETAMINOPHEN 325 MG TAB PO PRN (00:38)
[2019-10-07] MEDS ORDERED: HYDROCORTISONE ACETATE 25 MG SUPP PR PRN (00:38)
[2019-10-07] MEDS ORDERED: bisacodyL 10 MG SUPP PR PRN (00:38)
[2019-10-07] MEDS ORDERED: BENZOCAINE 20% AER SPR 82.5 GM CAN EXT PRN (00:38)
[2019-10-07] MEDS ORDERED: DIPHTHERIA/TETANUS/PERTUSSIS 0.5 ML SYR/VIAL IM ONE (00:38)
[2019-10-07] MEDS ORDERED: METHYLERGONOVINE MALEATE 0.2 MG/ML AMP IM ONE (00:38)
[2019-10-07] MEDS ORDERED: OXYTOCIN 30 UNITS/500 ML BAG IV PRN (00:38)
[2019-10-07] MEDS ORDERED: OXYCODONE/ACETAMINOPHEN 5mg/325mg TAB PO PRN (00:38)
--- NOTE | 2019-10-07 01:31 | Delivery Summary ---
DATE OF DELIVERY: 10/07/2019 DELIVERY NOTE This is a 1, para 1, blood type is A negative, group B strep negative, due date is 09/27/2019, was brought in for induction of labor at 40 weeks and 1 day. Started out, she had several doses of p.o. Cytotec through the night about 3 doses. She went from about 1 cm to the following morning about 2-3 cm. Jamie regularly with the Cytotec, she eventually got an epidural, got good pain relief. We then ruptured her membrane surgically. There was some meconium noted at this time. Then her contractions, although she was getting them frequently, she had no cervical change. She was started on IV Pitocin. With the IV Pitocin, we continued to up it. She went to full dilatation and delivered a live female via direct occiput anterior position over an intact perineum. Infant was suctioned through the mouth and the nose. Shoulders were delivered without difficulty. Cord was allowed to pulse for a minute, then it was cut by the patient's mother. Cord blood was taken. With IV Pitocin running, the placenta was removed intact. Inspection revealed a classical first-degree laceration. The vaginal mucosa was approximated out and to beyond the hymenal ring with a running 2-0 Vicryl. A deep suture was used to approximate the bulbocavernosus muscle. A separate deep suture was used to approximate the perineal body and a running subcuticular suture was used to approximate the perineal skin edges. Following this, sponges were removed. Clots were expressed from the uterus and then a vag exam including rectovaginal examination revealed no hematoma formation or sponges in the vagina. Estimated blood loss was 200 mL Apgars deferred to the nurses. I attest to the content of the Intraoperative Record and any orders documented therein. Any exceptions are noted below. MTDD
[2019-10-07] MEDS: IBUPROFEN 600 MG TAB PO PRN ×4 (02:19→20:03)
[2019-10-07] MEDS: DOCUSATE SODIUM 100 MG CAP PO SCH ×2 (07:58→20:03)
[2019-10-07] MEDS: PRENATAL VITAMIN 1 TAB PO SCH (07:58)
--- NOTE | 2019-10-07 08:22 | Anesthesia Procedure Note ---
Date of Service October 07, 2019 Anesthesia Post Epidural Note Vital Signs Vital Signs: Temp Pulse Resp BP Pulse Ox 36.6 C 62 20 112/76 100 10/07/19 07:45 10/07/19 07:45 10/07/19 07:45 10/07/19 07:45 10/07/19 00:35 Pain Intensity Left Lower Abdomen: Pain Intensity: 1 Notes Mental Status: alert / awake / arousable and participated in evaluation Nausea / Vomiting: adequately controlled Pain: adequately controlled Airway Patency, RR, SpO2: stable & adequate BP & HR: stable & adequate Hydration State: stable & adequate Neuraxial Anesthesia: was administered and sensory block is resolving Anesthetic Complications: no major complications apparent Epidural: Removed without complications and With tip intact
--- NOTE | 2019-10-07 12:51 | Obstetrical Progress Note ---
Date of Service October 07, 2019 Assessment & Plan Admission and Anticipated Discharge Date Admission Date: October 05, 2019 Physical Exam Physical Exam: abdomen soft and non tender no calf tenderness ambulating well vaginal bleeding scant hgb 10.9 Results & Data ([facility]) Vital Signs (Past 12 Hours) Vital Signs Temp Pulse Pulse Resp BP BP 10/07/19 11:50 36.7 C 70 16 123/75 10/07/19 11:49 36.6 C 122 H 20 127/87 10/07/19 07:45 36.6 C 62 20 112/76 10/07/19 03:25 37.2 C 82 18 135/81 10/07/19 02:54 122 H 127/87 10/07/19 02:40 88 18 120/69 10/07/19 02:39 88 120/69 10/07/19 02:24 78 119/75 10/07/19 02:10 76 18 122/77 10/07/19 02:09 76 122/77 10/07/19 01:54 62 127/81 10/07/19 01:40 56 L 18 128/91 10/07/19 01:39 56 L 128/91 10/07/19 01:25 67 18 130/69 10/07/19 01:24 67 130/69 10/07/19 01:10 75 20 118/60 10/07/19 01:09 75 118/60 10/07/19 00:55 77 20 127/67 10/07/19 00:54 77 127/67
[2019-10-07] MEDS: ACETAMINOPHEN W/CODEINE #3 1 TAB PO PRN (16:38)
[2019-10-08] MEDS: IBUPROFEN 600 MG TAB PO PRN ×4 (02:31→21:33)
[2019-10-08] MEDS: PRENATAL VITAMIN 1 TAB PO SCH (07:41)
[2019-10-08] MEDS: DOCUSATE SODIUM 100 MG CAP PO SCH ×2 (07:41→21:33)
--- NOTE | 2019-10-08 11:50 | Obstetrical Progress Note ---
Date of Service October 08, 2019 Assessment & Plan Admission and Anticipated Discharge Date Admission Date: October 05, 2019 Physical Exam Physical Exam: abdomen soft and non tender right sided calf tenderness ambulating well vaginal bleeding scant hgb 10.9 Results & Data ([facility]) Vital Signs (Past 12 Hours) Vital Signs Temp Pulse Resp BP Pulse Ox 10/07/ 07:30 36.7 C 78 20 108/67 99
--- NOTE | 2019-10-08 13:58 | Ultrasound Report ---
US venous doppler LE BI CLINICAL HISTORY: Leg pain COMPARISON STUDY: No previous studies for comparison. FINDINGS: Real-time and color flow Doppler imaging were performed. Flow was seen within the femoral, popliteal and calf veins with no intraluminal thrombus demonstrated. The saphenous vein is patent. IMPRESSION: No evidence of lower extremity DVT. ACT 112: Negative or not required by law. Electronically signed by: Lucien Landa M.D. 10/08/2019 1:57 PM
[2019-10-08] MEDS: ACETAMINOPHEN W/CODEINE #3 1 TAB PO PRN (14:04)
[2019-10-08] MEDS ORDERED: bisacodyL 5 MG TABEC PO SCH (20:00)
[2019-10-09] MEDS: IBUPROFEN 600 MG TAB PO PRN (02:04)
[2019-10-09] MEDS: PRENATAL VITAMIN 1 TAB PO SCH (08:16)
[2019-10-09] MEDS: DOCUSATE SODIUM 100 MG CAP PO SCH (08:16)
--- NOTE | 2019-10-09 09:24 | Obstetrical Progress Note ---
Date of Service October 09, 2019 Assessment & Plan Admission and Anticipated Discharge Date Admission Date: October 05, 2019 Physical Exam Physical Exam: abdomen soft and non tender no calf tenderness ambulating well vaginal bleeding scant hgb 9.6 Results & Data ([facility]) Vital Signs (Past 12 Hours) Vital Signs Temp Pulse Resp BP BP Pulse Ox 10/09/19 07:25 36.6 C 75 19 132/87 99 10/08/19 23:30 36.7 C 74 16 107/71 10/08/19 21:30 36.6 C 76 20 116/74 99
== END 2019-10-09 16:30 | disposition home or self-care (01) | DRG 807 ==
LOC: 4S1 19:06 → 4S2 10-07 03:34 → UNDODISIN 10-07 19:10

== ENCOUNTER 2022-04-03 09:46 | Inpatient (IN) ==
[2022-04-03] MEDS ORDERED: miSOPROStoL 50 MCG TAB PO ONE (14:10)
[2022-04-03] MEDS ORDERED: OXYTOCIN 30 UNITS/500 ML BAG IV PRN ×2 (14:10→19:25)
[2022-04-03] MEDS ORDERED: LIDOCAINE 1% LOCAL 20 ML VIAL INFIL PRN (14:10)
[2022-04-03] MEDS ORDERED: PENICILLIN G POTASSIUM 6 MU in DEXTROSE 5% 250 ML IV STA (14:19)
[2022-04-03] MEDS: LACTATED RINGER'S 1,000 ML IV PRN ×2 (14:39→21:24)
[2022-04-03 15:08] LABS: Hematocrit (blood only) 34.1 % (37.0-47.0); Hemoglobin 11.1 g/dl (12.0-16.0); Mean Corpuscular Hemoglobin 27.7 pg (25.0-34.0); Mean Corpuscular Hgb Conc 32.6 g/dL (32.0-36.0); Mean Platelet Volume 12.2 fL (9.4-12.4); Platelet Count 150 K/uL (130-400); RDW Coefficient of Variation 15.3 % (11.5-14.5); Red Blood Count 4.01 M/uL (4.20-5.40); White Blood Count 7.58 K/ul (4.8-10.8)
[2022-04-03] MEDS: PENICILLIN G POTASSIUM 3 MU in DEXTROSE 5% 100 ML IV PRN ×2 (18:50→22:43)
[2022-04-03] MEDS ORDERED: ePHEDrine sulfate 50 MG/ML AMP ONE (19:32)
[2022-04-03] MEDS ORDERED: SODIUM CHLORIDE 0.9% INJ 10 ML VIAL ONE (19:32)
[2022-04-03] MEDS ORDERED: fentaNYL citrate 100 MCG/2 ML VIAL ONE (19:32)
[2022-04-03] MEDS ORDERED: LIDOCAINE 2%/EPINEPHRINE 1:200,000 20 ML SDV ONE (19:33)
[2022-04-03] MEDS ORDERED: BUPIVACAINE 0.25% 30 ML VIAL ONE (19:33)
[2022-04-03] MEDS ORDERED: fentaNYL 2MCG/ML ROPIVACAINE 1.25MG/ML 100 ML BAG EPI ONE (19:33)
[2022-04-03] MEDS ORDERED: NALBUPHINE HCL INJ 10 MG/ML AMP IV PRN (19:40)
[2022-04-03] MEDS ORDERED: ePHEDrine sulfate 50 MG/ML AMP IV PRN (19:40)
[2022-04-03] MEDS ORDERED: NALOXONE HCL 0.4 MG/1 ML VIAL/CARP IV PRN (19:40)
[2022-04-03] MEDS ORDERED: diphenhydrAMINE 50 MG/ML VIAL IV PRN (19:40)
[2022-04-03] MEDS ORDERED: fentaNYL 2MCG/ML ROPIVACAINE 1.25MG/ML 100 ML BAG EPI PRN (19:40)
[2022-04-03] MEDS ORDERED: NALOXONE HCL 1 MG in SODIUM CHLORIDE 0.9% 1000ML 1,000 ML IV PRN (19:40)
[2022-04-03] MEDS ORDERED: ONDANSETRON INJ 2 MG/ML 2 ML VIAL IV PRN (19:40)
--- NOTE | 2022-04-03 19:41 | Anesthesiology Consultation ---
Date of Service April 03, 2022 Assessment & Plan (1) Encounter for pre-operative examination: Chart Review Chart Review: Patient NOT seen in Pre Admission Testing and Acceptable Risk for Labor Epidural Consults Requested none History Height/Weight Height: 5 ft 2 in Weight: 104.326 kg Allergies Allergy/AdvReac Type Severity Reaction Status Date / Time latex Allergy Hives Verified 03/30/22 10:28 Medications Home Medications Medication Instructions Recorded Confirmed Last Taken vits no.129-ferrous fum 1 tab PO DAILY 09/13/19 04/03/22 1 Day Ago 27 mg iron-folic acid 800 mcg ~04/02/22 tablet ( One Daily) Active Medications Generic Name Dose Route Start Last Admin Trade Name Freq PRN Reason Stop Dose Admin Lactated Ringer's 1,000 mls @ 125 mls/hr 04/03/22 14:10 04/03/22 19:54 Lr IV 04/05/22 14:09 999 mls/hr .Q8H PRN Infusion L&D Protocol Protocol Penicillin G Potassium 3 mu/ 106 mls @ 100 mls/hr 04/03/22 14:30 04/03/22 18:50 Dextrose IV 04/13/22 14:29 100 mls/hr PRN PRN Administration GBS POSITIVE Protocol Ropivacaine 100 ml 04/03/22 19:40 04/03/22 20:02 Fentanyl 2mcg/Ml Ropivacaine 1.25mg/Ml 100 Ml Bag EPI 04/04/22 19:39 100 ml PRN PRN Administration Pain R/T Labor Protocol Past Medical History Medical History Acute sore throat Concussion Depression with anxiety Patient states she was taking Lexapro and stopped when she got . Macromastia Exercise / Class Metabolic Activity II 4-5 Yardwork/Stairs/Walk up hill Past Family History Family History Grandfather (Maternal) Heart disease Grandfather (Paternal) Heart disease Grandmother (Maternal) Heart disease Father Colon cancer Other No significant family history Past Surgical History Surgical History Hx of breast reduction, elective 2018 [place] teeth extracted Social History Smoking Status: Smoker, status unknown Do You Dip or Chew Tobacco: No Hx Alcohol Use: No Hx Substance Use: No substance use type: does not use Physical Exam Vital Signs Last Vital Signs Temp 37.4 C 04/03/22 19:12 Pulse 90 04/03/22 20:05 Resp 18 04/03/22 19:12 BP 116/84 04/03/22 19:05 Pulse Ox 100 04/03/22 20:05 Testing Laboratory Results 04/03/22 14:38
[2022-04-04] MEDS ORDERED: METHYLERGONOVINE MALEATE 0.2 MG/ML AMP IM ONE (00:05)
[2022-04-04] MEDS ORDERED: OXYTOCIN 30 UNITS/500 ML BAG IV PRN (00:05)
[2022-04-04] MEDS ORDERED: HYDROCORTISONE ACETATE 25 MG SUPP PR PRN (00:05)
[2022-04-04] MEDS ORDERED: ACETAMINOPHEN 325 MG TAB PO PRN (00:05)
[2022-04-04] MEDS ORDERED: BENZOCAINE 20% AER SPR 82.5 GM CAN EXT PRN (00:05)
[2022-04-04] MEDS ORDERED: oxyCODONE/ACETAMINOPHEN 5mg/325mg TAB PO PRN (00:05)
[2022-04-04] MEDS ORDERED: ACETAMINOPHEN W/CODEINE #3 1 TAB PO PRN (00:05)
[2022-04-04] MEDS ORDERED: DIPHTHERIA/TETANUS/PERTUSSIS 0.5mL SYR/VIAL (Age 7+yrs) IM ONE (00:05)
[2022-04-04] MEDS ORDERED: METHYLERGONOVINE MALEATE 0.2 MG/ML AMP IM STA (00:48)
--- NOTE | 2022-04-04 01:48 | Anesthesia Procedure Note ---
Date of Service April 04, 2022 Anesthesia Post Epidural Note Vital Signs Vital Signs: Temp Pulse Resp BP Pulse Ox 37.1 C 77 18 121/70 100 04/04/22 00:05 04/04/22 01:34 04/04/22 01:35 04/04/22 01:34 04/03/22 23:55 Notes Mental Status: alert / awake / arousable and participated in evaluation Patient Amnestic to Procedure: No Nausea / Vomiting: adequately controlled Pain: adequately controlled Airway Patency, RR, SpO2: stable & adequate BP & HR: stable & adequate Hydration State: stable & adequate Neuraxial Anesthesia: was administered and sensory block is resolving Anesthetic Complications: no major complications apparent and Pt Satisfied with anesthetic care Epidural: Removed without complications and With tip intact
[2022-04-04] MEDS: IBUPROFEN 600 MG TAB PO PRN ×3 (07:43→22:31)
[2022-04-04] MEDS: DOCUSATE SODIUM 100 MG CAP PO SCH ×2 (07:43→20:52)
[2022-04-04] MEDS: PRENATAL VITAMIN 1 TAB PO SCH (07:43)
[2022-04-05 06:38] LABS: Hematocrit (blood only) 28.6 % (37.0-47.0); Hemoglobin 9.2 g/dl (12.0-16.0); Mean Corpuscular Hemoglobin 28.2 pg (25.0-34.0); Mean Corpuscular Hgb Conc 32.2 g/dL (32.0-36.0); Mean Corpuscular Volume 87.7 fL (80.0-100.0); Mean Platelet Volume 12.1 fL (9.4-12.4); Platelet Count 130 K/uL (130-400); RDW Coefficient of Variation 15.5 % (11.5-14.5); RDW Standard Deviation 49.9 fL (36.4-46.3); Red Blood Count 3.26 M/uL (4.20-5.40); White Blood Count 8.48 K/ul (4.8-10.8)
[2022-04-05] MEDS: IBUPROFEN 600 MG TAB PO PRN (08:13)
[2022-04-05] MEDS: PRENATAL VITAMIN 1 TAB PO SCH (08:13)
[2022-04-05] MEDS: DOCUSATE SODIUM 100 MG CAP PO SCH (08:13)
[2022-04-05 09:27] VITALS: BP 116/75; PULSE 86; TEMP 98.1; O2SAT 97
--- NOTE | 2022-04-05 10:25 | Obstetrical Progress Note ---
Date of Service April 05, 2022 Assessment & Plan Admission and Anticipated Discharge Date Admission Date: April 03, 2022 Subjective abdomen soft and non tender ambulating well no calf tenderness vaginal bleeding scant hgb 9.2 Results & Data ([facility]) Vital Signs (Past 12 Hours) Vital Signs Temp Pulse Resp BP Pulse Ox O2 Del Method 04/05/22 07:35 36.7 C 86 20 116/75 97 Room Air 04/05/22 00:25 37.0 C 74 16 121/80 96 Room Air
[2022-04-05] MEDS ORDERED: bisacodyL 5 MG TABEC PO SCH (20:00)
[2022-04-06] MEDS ORDERED: bisacodyL 10 MG SUPP PR PRN
--- NOTE | 2022-04-15 11:03 | Delivery Summary ---
Katja is a 2, para 2, blood type is A negative, group B strep positive. Due date 04/01/2022. She was brought in for induction had several episodes of questionable leakage of fluid. Her baby wa s considered to be over 8 pounds and she was several days over her due date. She was strep positive and she was given penicillin IV, started on p.o. Cytotec. Eventually, she received over 2 doses of p enicillin. After the Cytotec was over, we followed up with IV Pitocin. She developed a good regular contractions, had an epidural for pain control. Delivered a live male infant via direct occiput ant erior position. Apgars were good. I repaired a second-degree laceration with 2-0 Vicryl. Estimated blood loss was 200 mL. The patient tolerated the procedure well and left the delivery room in good co ndition. Job ID: [id number]
== END 2022-04-05 13:35 | disposition home or self-care (01) | DRG 807 ==
LOC: 4S1 11:53 → 4E2 04-04 02:35

== ENCOUNTER 2023-06-16 08:20 | Inpatient (IN) ==
[2023-06-16] MEDS ORDERED: OXYTOCIN 30 UNITS/NSS 30 UNITS/500 ML BAG IV PRN ×2 (09:42→17:06)
[2023-06-16] MEDS ORDERED: ACETAMINOPHEN 325 MG TAB PO PRN ×2 (09:42→17:06)
[2023-06-16] MEDS ORDERED: CALCIUM CARBONATE 500 MG CHEWABLE TAB PO PRN (09:42)
[2023-06-16] MEDS ORDERED: LIDOCAINE 1% LOCAL 20 ML VIAL INFIL PRN (09:42)
--- NOTE | 2023-06-16 09:48 | History & Physical Report ---
Date of Service June 16, 2023 Assessment & Plan (1) Spontaneous rupture of amniotic membranes: Plan: 27-year-old -0-0-2 at 39 weeks and 1 day gestation presenting today with contractions, spontaneous rupture of membranes at 4 AM, cervical change since yesterday, Vital signs stable afebrile, heart rate reassuring, GBS negative, Plan to admit, monitor, labs, epidural for pain and then start oxytocin to augment contractions. (2) Active labor at term: History of Present Illness Primary Care Provider: Aba Lamb DO Patient is a 27-year-old -0-0-2 at 39 weeks and 1 day gestation who has been feeling contractions since yesterday. She was here and checked by Dr. Etienne when her cervix was 1 cm dilated. She states her contractions get more regular and painful and she started to leak this morning. She had gush of fluid leakage on the floor around 4 am this morning and it was clear. She reports good movements. Her has been uncomplicated except history of depression she stopped Lexapro during this and desires to start again after delivery. GBS is negative. Allergies Allergy/AdvReac Type Severity Reaction Status Date / Time latex Allergy Hives Verified 06/15/23 15:01 Home Medications Medication Instructions Recorded Confirmed Type vits no.129-ferrous fum 1 tab PO DAILY 09/13/19 06/16/23 History 27 mg iron-folic acid 800 mcg tablet ( One Daily) ondansetron 4 mg disintegrating 4 mg PO Q6H PRN nausea and 05/15/23 06/16/23 Rx tablet vomiting #15 tabs Patient History Medical History Subchorionic hemorrhage in first trimester Depression with anxiety Patient states she was taking Lexapro and stopped when she got . Macromastia Concussion Surgical History [place] teeth extracted Hx of breast reduction, elective 2018 Family History Grandfather (Maternal) Heart disease Grandfather (Paternal) Heart disease Grandmother (Maternal) Heart disease Father Colon cancer Other No significant family history Social History Smoking Status: Never smoker Second Hand Exposure: No; Do You Dip or Chew Tobacco: No; Hx Alcohol Use: No Hx Substance Use: No Preferred Language: Upper Sorbian Communication Ability: Effective Vice President & General Manager [employer] Required: No Beliefs That Will Affect Care: None marital status: Current Living Situation: Spouse Current Living Situation Comment: and 2 children current occupational status: employed 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 Other Information That Helps Us Care for You: No Feels Safe at Home: Yes Dental Care, Regularly: Yes Sunscreen Use: Yes Assistive Devices: None OB History 2 FT, '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
[2023-06-16] MEDS: LACTATED RINGER'S 1,000 ML IV PRN (10:15)
[2023-06-16 10:25] LABS: Hematocrit (blood only) 36.9 % (37.0-47.0); Hemoglobin 11.7 g/dl (12.0-16.0); Mean Corpuscular Hemoglobin 26.5 pg (25.0-34.0); Mean Corpuscular Hgb Conc 31.7 g/dL (32.0-36.0); Mean Corpuscular Volume 83.5 fL (80.0-100.0); Mean Platelet Volume 12.5 fL (9.4-12.4); Platelet Count 166 K/uL (130-400); RDW Standard Deviation 45.4 fL (36.4-46.3); Red Blood Count 4.42 M/uL (4.20-5.40); White Blood Count 8.34 K/ul (4.8-10.8)
--- NOTE | 2023-06-16 11:06 | Anesthesiology Consultation ---
Date of Service June 16, 2023 Assessment & Plan (1) Encounter for pre-operative examination: Chart Review Chart Review: Acceptable Risk for Labor Epidural History Height/Weight Height: 5 ft 2 in Weight: 102.965 kg Allergies Allergy/AdvReac Type Severity Reaction Status Date / Time latex Allergy Hives Verified 06/15/23 15:01 Medications Home Medications Medication Instructions Recorded Confirmed Last Taken vits no.129-ferrous fum 1 tab PO DAILY 09/13/19 06/16/23 06/15/23 08:00 27 mg iron-folic acid 800 mcg tablet ( One Daily) ondansetron 4 mg disintegrating 4 mg PO Q6H PRN nausea and 05/15/23 06/16/23 06/15/23 23:55 tablet vomiting #15 tabs Past Medical History Medical History Subchorionic hemorrhage in first trimester Depression with anxiety Patient states she was taking Lexapro and stopped when she got . Macromastia Concussion Past Family History Family History Grandfather (Maternal) Heart disease Grandfather (Paternal) Heart disease Grandmother (Maternal) Heart disease Father Colon cancer Other No significant family history Past Surgical History Surgical History [place] teeth extracted Hx of breast reduction, elective 2018 Social History Smoking Status: Never smoker Do You Dip or Chew Tobacco: No Hx Alcohol Use: No Hx Substance Use: No substance use type: does not use Physical Exam Vital Signs Last Vital Signs Temp 36.9 C 06/16/23 08:57 Pulse 87 06/16/23 08:57 Resp 20 06/16/23 08:57 BP 129/80 06/16/23 08:57 Testing Laboratory Results 06/16/23 09:55
[2023-06-16] MEDS: fentaNYL citrate PF 100 MCG/2 ML VIAL ONE (11:47)
[2023-06-16] MEDS: BUPIVACAINE 0.25% PF 30 ML VIAL ONE (11:47)
[2023-06-16] MEDS: LIDOCAINE 2%/EPINEPHRINE 1:200,000 20 ML PF ONE (11:47)
[2023-06-16] MEDS: fentANYL 2 MCG/ML BUPIVacaine 0.125%-NSS 100ML BAG ONE (11:48)
[2023-06-16] MEDS ORDERED: ePHEDrine sulfate 50 MG/ML AMP IV PRN (11:59)
[2023-06-16] MEDS ORDERED: NALOXONE HCL 0.4 MG/1 ML VIAL/CARP IV PRN (11:59)
[2023-06-16] MEDS ORDERED: NALOXONE HCL 1 MG in SODIUM CHLORIDE 0.9% 1,000 ML IV PRN (11:59)
[2023-06-16] MEDS ORDERED: ROPIVACAINE 0.5% PF 5 MG/ML 20 ML VIAL EPI PRN (11:59)
[2023-06-16] MEDS ORDERED: LIDOCAINE 2% MPF LOCAL 5 ML VIAL EPI PRN (11:59)
[2023-06-16] MEDS ORDERED: fentANYL 2 MCG/ML BUPIVacaine 0.125%-NSS 100ML BAG EPI PRN (11:59)
[2023-06-16] MEDS ORDERED: fentaNYL citrate PF 100 MCG/2 ML VIAL EPI PRN (11:59)
[2023-06-16] MEDS ORDERED: BUPIVACAINE 0.25% PF 30 ML VIAL EPI PRN (11:59)
[2023-06-16] MEDS ORDERED: SODIUM CHLORIDE 0.9% PF INJ 10 ML VIAL EPI PRN (11:59)
[2023-06-16] MEDS: SODIUM CHLORIDE 0.9% PF INJ 10 ML VIAL ONE (12:02)
[2023-06-16] MEDS: OXYTOCIN 30 UNITS/NSS 30 UNITS/500 ML BAG IV PRN (13:39)
[2023-06-16] MEDS: ONDANSETRON INJ 2 MG/ML 2 ML VIAL IV PRN (13:53)
--- NOTE | 2023-06-16 14:26 | Obstetrical Progress Note ---
Date of Service June 16, 2023 Assessment & Plan Admission and Anticipated Discharge Date Admission Date: June 16, 2023 Subjective Patient has had epidural for pain and now comfortable Her pulse have been labile, from 80-90's to 140's No CP/ SOB/ palpitations She has h/o anxiety VE; 4-5 cm/ 60%/ -2 FHR categ I Continue to monitor closely Will order ECG Results & Data Vital Signs (Past 12 Hours) Vital Signs Temp Pulse Resp BP Pulse Ox 06/16/23 14:22 144 H 06/16/23 14:22 109/55 L 06/16/23 14:21 99 06/16/23 14:21 113 H 06/16/23 14:16 99 06/16/23 14:16 123 H 06/16/23 14:11 97 06/16/23 14:11 116 H 06/16/23 14:08 131 H 06/16/23 14:08 115/56 L 06/16/23 14:06 97 06/16/23 14:06 78 06/16/23 14:01 97 06/16/23 14:01 75 06/16/23 13:56 99 06/16/23 13:56 140 H 06/16/23 13:52 115 H 06/16/23 13:52 112/67 06/16/23 13:51 100 06/16/23 13:51 107 H 06/16/23 13:46 100 06/16/23 13:46 156 H 06/16/23 13:41 99 06/16/23 13:41 126 H 06/16/23 13:37 117 H 06/16/23 13:37 107/68 06/16/23 13:36 98 06/16/23 13:36 125 H 06/16/23 13:31 98 06/16/23 13:31 110 H 06/16/23 13:26 98 06/16/23 13:26 111 H 06/16/23 13:22 122 H 06/16/23 13:22 106/66 06/16/23 13:21 99 06/16/23 13:21 113 H 06/16/23 13:16 99 06/16/23 13:16 106 H 06/16/23 13:11 100 06/16/23 13:11 119 H 06/16/23 13:07 112 H 06/16/23 13:07 102/55 L 06/16/23 13:06 99 06/16/23 13:06 117 H 06/16/23 13:01 99 06/16/23 13:01 80 06/16/23 12:56 99 06/16/23 12:56 105 H 06/16/23 12:52 117 H 06/16/23 12:52 105/59 L 06/16/23 12:51 98 06/16/23 12:51 104 H 06/16/23 12:46 99 06/16/23 12:46 116 H 06/16/23 12:41 100 06/16/23 12:41 73 06/16/23 12:37 121 H 06/16/23 12:37 108/59 L 06/16/23 12:36 100 06/16/23 12:36 122 H 06/16/23 12:31 100 06/16/23 12:31 88 06/16/23 12:26 100 06/16/23 12:26 102 H 06/16/23 12:23 136 H 06/16/23 12:23 126/70 06/16/23 12:21 99 06/16/23 12:21 138 H 06/16/23 12:16 100 06/16/23 12:16 143 H 06/16/23 12:11 99 06/16/23 12:11 86 06/16/23 12:10 123 H 06/16/23 12:10 97/53 L 06/16/23 12:06 100 06/16/23 12:06 121 H 06/16/23 12:04 101 H 06/16/23 12:04 106/59 L 06/16/23 12:02 78 06/16/23 12:02 89/53 L 06/16/23 12:01 100 06/16/23 12:01 83 06/16/23 12:00 123 H 06/16/23 12:00 88/55 L 06/16/23 11:58 113 H 06/16/23 11:58 87/55 L 06/16/23 11:56 98 06/16/23 11:56 95 H 06/16/23 11:56 97/51 L 06/16/23 11:54 74 06/16/23 11:54 98/52 L 06/16/23 11:51 100 06/16/23 11:51 147 H 06/16/23 11:51 81/43 L 06/16/23 11:50 142 H 06/16/23 11:50 88/46 L 06/16/23 11:49 148 H 06/16/23 11:49 98/52 L 06/16/23 11:47 93 06/16/23 11:47 102 H 06/16/23 11:47 215/145 H 06/16/23 11:46 100 06/16/23 11:46 114 H 06/16/23 11:42 130 H 06/16/23 11:42 120/72 06/16/23 11:41 99 06/16/23 11:41 125 H 06/16/23 11:40 80 06/16/23 11:40 117/67 06/16/23 11:36 99 06/16/23 11:36 84 06/16/23 11:31 100 06/16/23 11:31 74 06/16/23 11:28 94 06/16/23 11:28 118 H 06/16/23 11:26 97 06/16/23 11:26 76 06/16/23 11:21 99 06/16/23 11:21 74 06/16/23 11:16 98 06/16/23 11:16 98 H 06/16/23 11:12 96 H 06/16/23 11:12 123/77 06/16/23 11:11 98 06/16/23 11:11 87 06/16/23 08:57 36.9 C 87 20 129/80 06/16/23 08:50 87 129/80 06/16/23 08:48 20 06/16/23 08:48 36.9 C 20
[2023-06-16] MEDS: ePHEDrine sulfate 50 MG/ML AMP ONE (14:28)
[2023-06-16] MEDS: SODIUM CHLORIDE 0.9% PF INJ 10 ML VIAL EPI STA (14:28)
[2023-06-16] MEDS: fentaNYL citrate PF 100 MCG/2 ML VIAL EPI STA (14:28)
[2023-06-16] MEDS: BUPIVACAINE 0.25% PF 30 ML VIAL EPI STA (14:28)
[2023-06-16] MEDS: LIDOCAINE 2%/EPINEPHRINE 1:200,000 20 ML PF EPI STA (14:28)
[2023-06-16 15:51] LABS: Albumin Globulin Ratio 1.2 (0.9-2); Albumin Level 3.1 gm/dl (3.4-5.0); BUN Creatinine Ratio 18.5 (10-20); Bilirubin,Total 0.8 mg/dl (0.2-1.0); Calcium 8.1 mg/dl (8.6-10.3); Creatinine Clr Calc Pharmacy 146.2 ml/min; Est GFR (Non-African American) 121.7 ml/min; Globulin 2.6 gm/dl (2.5-4.0); Magnesium 1.6 mg/dl (1.7-2.4); Potassium 3.6 mmol/L (3.5-5.1); Total Protein 5.7 gm/dl (6.0-8.3)
[2023-06-16] MEDS: ceFAZolin 2000MG 2,000 MG/15 ML SYR IV ONE (16:59)
--- NOTE | 2023-06-16 16:59 | Obstetrical Progress Note ---
Date of Service June 16, 2023 Assessment & Plan Admission and Anticipated Discharge Date Admission Date: June 16, 2023 Subjective I reviewed the ECG with Dr Larios, clerk typist, he stated it was sinus tachyca rdia, T waves ere normal Recommended to watch after epidural is removed. Results & Data Vital Signs (Past 12 Hours) Vital Signs Temp Pulse Resp BP Pulse Ox 06/16/23 16:38 65 06/16/23 16:38 146/74 H 06/16/23 16:36 98 06/16/23 16:36 85 06/16/23 16:35 93 06/16/23 16:35 92 H 06/16/23 16:31 97 06/16/23 16:31 121 H 06/16/23 16:29 92 06/16/23 16:29 113 H 06/16/23 16:26 98 06/16/23 16:26 93 H 06/16/23 16:23 81 06/16/23 16:23 103/59 L 06/16/23 16:21 97 06/16/23 16:21 87 06/16/23 16:16 99 06/16/23 16:16 73 06/16/23 16:15 93 06/16/23 16:15 91 H 06/16/23 16:11 95 06/16/23 16:11 77 06/16/23 16:09 71 06/16/23 16:09 103/57 L 06/16/23 16:06 96 06/16/23 16:06 90 06/16/23 16:01 98 06/16/23 16:01 79 06/16/23 15:56 98 06/16/23 15:56 76 06/16/23 15:53 83 06/16/23 15:53 127/91 06/16/23 15:51 97 06/16/23 15:51 95 H 06/16/23 15:46 98 06/16/23 15:46 79 06/16/23 15:41 97 06/16/23 15:41 68 06/16/23 15:38 81 06/16/23 15:38 106/54 L 06/16/23 15:36 97 06/16/23 15:36 77 06/16/23 15:31 98 06/16/23 15:31 110 H 06/16/23 15:26 98 06/16/23 15:26 72 06/16/23 15:24 78 06/16/23 15:24 115/56 L 06/16/23 15:21 98 06/16/23 15:21 114 H 06/16/23 15:21 93 06/16/23 15:21 92 H 06/16/23 15:16 96 06/16/23 15:16 84 06/16/23 15:15 20 06/16/23 15:15 37.1 C 20 06/16/23 15:12 93 06/16/23 15:12 102 H 06/16/23 15:11 97 06/16/23 15:11 85 06/16/23 15:08 113 H 06/16/23 15:08 102/55 L 06/16/23 15:06 98 06/16/23 15:06 86 06/16/23 15:01 98 06/16/23 15:01 97 H 06/16/23 14:56 98 06/16/23 14:56 120 H 06/16/23 14:52 98 H 06/16/23 14:52 95/53 L 06/16/23 14:51 97 06/16/23 14:51 76 06/16/23 14:46 97 06/16/23 14:46 84 06/16/23 14:41 97 06/16/23 14:41 77 06/16/23 14:37 90 06/16/23 14:37 104/51 L 06/16/23 14:36 97 06/16/23 14:36 80 06/16/23 14:31 97 06/16/23 14:31 77 06/16/23 14:26 98 06/16/23 14:26 78 06/16/23 14:22 144 H 06/16/23 14:22 109/55 L 06/16/23 14:21 99 06/16/23 14:21 113 H 06/16/23 14:16 99 06/16/23 14:16 123 H 06/16/23 14:11 97 06/16/23 14:11 116 H 06/16/23 14:08 131 H 06/16/23 14:08 115/56 L 06/16/23 14:06 97 06/16/23 14:06 78 06/16/23 14:01 97 06/16/23 14:01 75 06/16/23 13:56 99 06/16/23 13:56 140 H 06/16/23 13:52 115 H 06/16/23 13:52 112/67 06/16/23 13:51 100 06/16/23 13:51 107 H 06/16/23 13:46 100 06/16/23 13:46 156 H 06/16/23 13:41 99 06/16/23 13:41 126 H 06/16/23 13:37 117 H 06/16/23 13:37 107/68 06/16/23 13:36 98 06/16/23 13:36 125 H 06/16/23 13:31 98 06/16/23 13:31 110 H 06/16/23 13:26 98 06/16/23 13:26 111 H 06/16/23 13:22 122 H 06/16/23 13:22 106/66 06/16/23 13:21 99 06/16/23 13:21 113 H 06/16/23 13:16 99 06/16/23 13:16 106 H 06/16/23 13:11 100 06/16/23 13:11 119 H 06/16/23 13:07 112 H 06/16/23 13:07 102/55 L 06/16/23 13:06 99 06/16/23 13:06 117 H 06/16/23 13:01 99 06/16/23 13:01 80 06/16/23 12:56 99 06/16/23 12:56 105 H 06/16/23 12:52 117 H 06/16/23 12:52 105/59 L 06/16/23 12:51 98 06/16/23 12:51 104 H 06/16/23 12:46 99 06/16/23 12:46 116 H 06/16/23 12:41 100 06/16/23 12:41 73 06/16/23 12:37 121 H 06/16/23 12:37 108/59 L 06/16/23 12:36 100 06/16/23 12:36 122 H 06/16/23 12:31 100 06/16/23 12:31 88 06/16/23 12:26 100 06/16/23 12:26 102 H 06/16/23 12:23 136 H 06/16/23 12:23 126/70 06/16/23 12:21 99 06/16/23 12:21 138 H 06/16/23 12:16 100 06/16/23 12:16 143 H 06/16/23 12:11 99 06/16/23 12:11 86 06/16/23 12:10 123 H 06/16/23 12:10 97/53 L 06/16/23 12:06 100 06/16/23 12:06 121 H 06/16/23 12:04 101 H 06/16/23 12:04 106/59 L 06/16/23 12:02 78 06/16/23 12:02 89/53 L 06/16/23 12:01 100 06/16/23 12:01 83 06/16/23 12:00 123 H 06/16/23 12:00 88/55 L 06/16/23 11:58 113 H 06/16/23 11:58 87/55 L 06/16/23 11:56 98 06/16/23 11:56 95 H 06/16/23 11:56 97/51 L 06/16/23 11:54 74 06/16/23 11:54 98/52 L 06/16/23 11:51 100 06/16/23 11:51 147 H 06/16/23 11:51 81/43 L 06/16/23 11:50 142 H 06/16/23 11:50 88/46 L 06/16/23 11:49 148 H 06/16/23 11:49 98/52 L 06/16/23 11:47 93 06/16/23 11:47 102 H 06/16/23 11:47 215/145 H 06/16/23 11:46 100 06/16/23 11:46 114 H 06/16/23 11:42 130 H 06/16/23 11:42 120/72 06/16/23 11:41 99 06/16/23 11:41 125 H 06/16/23 11:40 80 06/16/23 11:40 117/67 06/16/23 11:36 99 06/16/23 11:36 84 06/16/23 11:31 100 06/16/23 11:31 74 06/16/23 11:28 94 06/16/23 11:28 118 H 06/16/23 11:26 97 06/16/23 11:26 76 06/16/23 11:21 99 06/16/23 11:21 74 06/16/23 11:16 98 06/16/23 11:16 98 H 06/16/23 11:12 96 H 06/16/23 11:12 123/77 06/16/23 11:11 98 06/16/23 11:11 87 06/16/23 08:57 36.9 C 87 20 129/80 06/16/23 08:50 87 129/80 06/16/23 08:48 20 06/16/23 08:48 36.9 C 20
--- NOTE | 2023-06-16 17:01 | Delivery Summary ---
Vaginal Delivery Summary Date of Service June 16, 2023 Vaginal Delivery Summary Patient was found to be fully dilated and desires to push. She pushed with one contraction and delivered the head and then shoulders with minimal traction. The baby was handed off to the mother. The cord was clampedx2 and cut at 1 minute. The vagina and perineum were checked and found to have 1st degree very superficial and small degree perineal and labial laceration. Those weres repaired with 3/0 vicryl on SH needle with single figure of 8 stitches. The placenta was delivered spontaneously as intact and complete. The uterus was explored and found to be empty. QBL was 17 ml. The fundus was firm The baby was a viable FEMALE infant, Apgars 8/9, the weight is pending The mother and the baby tolerated the procedure well. No complications happened and I was present during whole procedure.
[2023-06-16] MEDS: MAGNESIUM SULFATE / D5W 1 GM/100 ML BAG IV STA (17:02)
[2023-06-16] MEDS ORDERED: HYDROCORTISONE ACETATE 25 MG SUPP PR PRN (17:06)
[2023-06-16] MEDS ORDERED: bisacodyL 10 MG SUPP PR PRN (17:06)
--- NOTE | 2023-06-16 17:31 | Anesthesia Procedure Note ---
Date of Service June 16, 2023 Anesthesia Post Epidural Note Vital Signs Vital Signs: Temp Pulse Resp BP Pulse Ox 37.1 C 71 20 111/69 98 06/16/23 15:15 06/16/23 17:23 06/16/23 15:15 06/16/23 17:23 06/16/23 16:36 Notes Mental Status: alert / awake / arousable and participated in evaluation Patient Amnestic to Procedure: No Nausea / Vomiting: adequately controlled Pain: adequately controlled Airway Patency, RR, SpO2: stable & adequate BP & HR: stable & adequate Hydration State: stable & adequate Neuraxial Anesthesia: was administered and sensory block is resolving Anesthetic Complications: no major complications apparent and Pt Satisfied with anesthetic care Epidural: Removed without complications and With tip intact
[2023-06-16] MEDS: MEASLES, MUMPS & RUBELLA VIRUS VACCINE (MMR) 0.5ML VIAL SQ ONE (18:28)
[2023-06-16] MEDS: BENZOCAINE 20% SPRY 85 APPLN/85 GM CAN EXT PRN (19:47)
[2023-06-16] MEDS: IBUPROFEN 600 MG TAB PO PRN (19:47)
[2023-06-16] MEDS: DOCUSATE SODIUM 100 MG CAP PO SCH (21:20)
[2023-06-17 06:06] LABS: Hematocrit (blood only) 29.4 % (37.0-47.0); Hemoglobin 9.5 g/dl (12.0-16.0); Mean Corpuscular Hemoglobin 26.8 pg (25.0-34.0); Mean Corpuscular Hgb Conc 32.3 g/dL (32.0-36.0); Mean Corpuscular Volume 82.8 fL (80.0-100.0); Platelet Count 143 K/uL (130-400); RDW Coefficient of Variation 15.3 % (11.5-14.5); Red Blood Count 3.55 M/uL (4.20-5.40); White Blood Count 9.58 K/ul (4.8-10.8)
[2023-06-17] MEDS: FERROUS SULFATE 325 MG TAB PO SCH (07:25)
[2023-06-17] MEDS: PRENATAL VITAMIN 1 TAB PO SCH (07:25)
[2023-06-17] MEDS: DIPHTHER/TETAN/PERTUS Vaccine (Tdap, Adol/Adult) 0.5mL IM ONE (10:04)
[2023-06-17] MEDS: ESCITALOPRAM OXALATE 20 MG TAB PO SCH (10:56)
--- NOTE | 2023-06-17 11:53 | Obstetrical Progress Note ---
Date of Service June 17, 2023 Assessment & Plan Admission and Anticipated Discharge Date Admission Date: June 16, 2023 Subjective Patient is seen and examined. She feels well, no complaints. Ambulating without dizziness Voiding without difficulty Tolerating regular diet with out N&V Bleeding is minimal No fever/ chills/ CP/ SOB/ N&V/ Leg pain Bottle feeding without problems Vital Signs Temp Pulse Resp BP 06/17/23 02:51 36.4 C L 71 18 106/70 Lab Results 06/16/23 06/16/23 06/17/23 Range/Units 09:55 15:14 05:35 WBC 8.34 9.58 (4.8-10.8) K/ul RBC 4.42 3.55 L (4.20-5.40) M/uL Hgb 11.7 L 9.5 L (12.0-16.0) g/dl Hct 36.9 L 29.4 L (37.0-47.0) % MCV 83.5 82.8 (80.0-100.0) fL MCH 26.5 26.8 (25.0-34.0) pg MCHC 31.7 L 32.3 (32.0-36.0) g/dL RDW Std Deviation 45.4 46.0 (36.4-46.3) fL RDW Coeff of Herlinda 15.0 H 15.3 H (11.5-14.5) % Plt Count 166 143 (130-400) K/uL MPV 12.5 H 12.0 (9.4-12.4) fL Sodium 134 L (136-145) mmol/L Potassium 3.6 (3.5-5.1) mmol/L Chloride 106 (98-107) mmol/L Carbon Dioxide 19 L (21-32) mmol/L Anion Gap 9 (3-11) BUN 12 (6-23) mg/dl Creatinine 0.65 (0.6-1.2) mg/dl Est Cr Clr Drug Dosing 146.2 ml/min Est GFR ( Amer) 141.0 ml/min Est GFR (Non-Af Amer) 121.7 ml/min BUN/Creatinine Ratio 18.5 (10-20) Glucose 115 H (70-99(Fasting)) mg/dl Calcium 8.1 L (8.6-10.3) mg/dl Magnesium 1.6 L 1.7 (1.7-2.4) mg/dl Total Bilirubin 0.8 (0.2-1.0) mg/dl AST 15 (13-39) U/L ALT 6 L (7-52) U/L Alkaline Phosphatase 102 (34-104) U/L Total Protein 5.7 L (6.0-8.3) gm/dl Albumin 3.1 L (3.4-5.0) gm/dl Globulin 2.6 (2.5-4.0) gm/dl Albumin/Globulin Ratio 1.2 (0.9-2) RPR Nonreactive (Nonreactive) Blood Type A Negative Rho(D) Type Antibody Screen NEGATIVE Screen (Negative) 06/17/23 Range/Units 10:15 WBC (4.8-10.8) K/ul RBC (4.20-5.40) M/uL Hgb (12.0-16.0) g/dl Hct (37.0-47.0) % MCV (80.0-100.0) fL MCH (25.0-34.0) pg MCHC (32.0-36.0) g/dL RDW Std Deviation (36.4-46.3) fL RDW Coeff of Herlinda (11.5-14.5) % Plt Count (130-400) K/uL MPV (9.4-12.4) fL Sodium (136-145) mmol/L Potassium (3.5-5.1) mmol/L Chloride (98-107) mmol/L Carbon Dioxide (21-32) mmol/L Anion Gap (3-11) BUN (6-23) mg/dl Creatinine (0.6-1.2) mg/dl Est Cr Clr Drug Dosing ml/min Est GFR ( Amer) ml/min Est GFR (Non-Af Amer) ml/min BUN/Creatinine Ratio (10-20) Glucose (70-99(Fasting)) mg/dl Calcium (8.6-10.3) mg/dl Magnesium (1.7-2.4) mg/dl Total Bilirubin (0.2-1.0) mg/dl AST (13-39) U/L ALT (7-52) U/L Alkaline Phosphatase (34-104) U/L Total Protein (6.0-8.3) gm/dl Albumin (3.4-5.0) gm/dl Globulin (2.5-4.0) gm/dl Albumin/Globulin Ratio (0.9-2) RPR (Nonreactive) Blood Type A Negative Rho(D) Type Cancelled Antibody Screen Cancelled Screen Negative (Negative) PE: General: Alert, orientedx3, NAD Abd: soft, NT, fundus firm, below Umbilicus Perineum intact, Lochia rubra minimal Ext; NT, no edema AP: 27 yo s/p , ppd# 1 VSS Afebrile doing well Continue routine care All questions were answered D/C home tomorrow Results & Data Vital Signs (Past 12 Hours) Vital Signs Temp Pulse Resp BP 06/17/23 02:51 36.4 C L 71 18 106/70
[2023-06-17] MEDS: bisacodyL 5 MG TABEC PO SCH (20:46)
--- NOTE | 2023-06-17 21:59 | Electrocardiogram Report ---
Test Reason : Blood Pressure : / mmHG Vent. Rate : 100 BPM Atrial Rate : 100 BPM P-R Int : 118 ms QRS Dur : 078 ms QT Int : 350 ms P-R-T Axes : 023 046 027 degrees QTc Int : 451 ms Normal sinus rhythm Nonspecific T wave abnormality Abnormal ECG When compared with ECG of 30-JAN-2018 19:32, Nonspecific T wave abnormality now evident in Inferior leads Confirmed by Gustavo Hall ([id number]) on 06/17/2023 9:59:34 PM Referred By: Widl Haines Confirmed By:Gustavo Hall
[2023-06-18 06:13] LABS: Hematocrit (blood only) 29.7 % (37.0-47.0); Hemoglobin 9.3 g/dl (12.0-16.0)
[2023-06-18 08:30] VITALS: PULSE 69; RESP 16; TEMP 98.1; O2SAT 98
[2023-06-18 10:24] VITALS: BP 106/70
--- NOTE | 2023-06-18 10:34 | Obstetrical Progress Note ---
Date of Service June 18, 2023 Subjective Ambulation: ambulating normally Voiding: no voiding problems Passing Gas:: Yes Diet Tolerance:: regular diet Lochia:: Small Feeding Type:: bottle feeding Current Pain Level(1-10): 0 plans for d/c Physical Exam Constitutional WD/WN, vitals as above Gastrointestinal (Abdomen) Inspection/Auscultation: abdomen normal to inspection Skin no rashes, warm and dry Neurologic patellar DTR's 2+ bilat, sensation intact Psychiatric A+Ox3, euthymic affect Results & Data Vital Signs (Past 12 Hours) Vital Signs Temp Pulse Resp BP BP Pulse Ox O2 Del Method 06/18/23 10:20 36.7 C 69 16 106/70 107/74 98 06/18/23 07:25 36.7 C 69 16 107/74 98 Room Air 06/18/23 07:25 Room Air 06/18/23 00:44 36.5 C 52 L 20 100/68 99 Room Air Laboratory Results Laboratory Results - last 72 hr 06/16/23 06/16/23 06/17/23 09:55 15:14 05:35 WBC 8.34 9.58 RBC 4.42 3.55 L Hgb 11.7 L 9.5 L Hct 36.9 L 29.4 L MCV 83.5 82.8 MCH 26.5 26.8 MCHC 31.7 L 32.3 RDW Std Deviation 45.4 46.0 RDW Coeff of Herlinda 15.0 H 15.3 H Plt Count 166 143 MPV 12.5 H 12.0 Sodium 134 L Potassium 3.6 Chloride 106 Carbon Dioxide 19 L Anion Gap 9 BUN 12 Creatinine 0.65 Est Cr Clr Drug Dosing 146.2 Est GFR ( Amer) 141.0 Est GFR (Non-Af Amer) 121.7 BUN/Creatinine Ratio 18.5 Glucose 115 H Calcium 8.1 L Magnesium 1.6 L 1.7 Total Bilirubin 0.8 AST 15 ALT 6 L Alkaline Phosphatase 102 Total Protein 5.7 L Albumin 3.1 L Globulin 2.6 Albumin/Globulin Ratio 1.2 RPR Nonreactive Blood Type A Negative Rho(D) Type Antibody Screen NEGATIVE Screen 06/17/23 06/18/23 10:15 05:47 WBC RBC Hgb 9.3 L Hct 29.7 L MCV MCH MCHC RDW Std Deviation RDW Coeff of Herlinda Plt Count MPV Sodium Potassium Chloride Carbon Dioxide Anion Gap BUN Creatinine Est Cr Clr Drug Dosing Est GFR ( Amer) Est GFR (Non-Af Amer) BUN/Creatinine Ratio Glucose Calcium Magnesium Total Bilirubin AST ALT Alkaline Phosphatase Total Protein Albumin Globulin Albumin/Globulin Ratio RPR Blood Type A Negative Rho(D) Type Cancelled Antibody Screen Cancelled Screen Negative
== END 2023-06-18 11:56 | disposition home or self-care (01) | DRG 807 ==
LOC: OPB 08:20 → 4S1 08:38 → 4E2 22:47
DX: O99.892 Other specified diseases and conditions complicating childbirth; O99.344 Other mental disorders complicating childbirth; F41.8 Other specified anxiety disorders; Z91.040 Latex allergy status; Z3A.39 39 weeks gestation of pregnancy; O70.0 First degree perineal laceration during delivery; Z37.0 Single live birth; R00.0 Tachycardia, unspecified